=== PATIENT | male | born 1945 | race Caucasian/White ===

== ENCOUNTER 2018-08-25 19:13 | Inpatient (IN) | payer MEDICARE ==
[~2018-08-25] VITALS: Ht 180.3 cm; Wt 118.8 kg
[2018-08-25] MEDS ORDERED: NS(*) 0.9% 500 ML BAG 500 ML IV ONE (19:17)
[2018-08-25] MEDS ORDERED: methylPREDNIS SUCC 125 MG/2ML IVP ONE (19:20)
[2018-08-25] MEDS ORDERED: ALBUTEROL/IPRATROPIUM 3 ML NEB ONE (19:20)
--- NOTE | 2018-08-25 19:30 | ER Report ---
History and Physical Time Seen By MD: 19:18 Hx. of Stated Complaint: PATIENT HAVING SHORTNESS OF BREATH. HPI/ROS CHIEF COMPLAINT: Shortness of breath HISTORY OF PRESENT ILLNESS: 72-year-old male patient presents to emergency room with complaints shortness of breath. Patient states that he had just flown in to [place] from [place] this afternoon. He has drove up. They're here visiting as she is here for a conference. He states that when he landed in [place] he had a hard time walking. He states that that has worsened throughout the day. He states that he is feeling he is not able to catch his breath. His did call EMS which responded. They did find him 53% on room air. He was started on Cipro And was able to get up to 85-80% with 15 L of oxygen bled in. Patient denies having any fevers, chills, nausea, vomiting or diarrhea. Patient has not taken any medication for this. Patient has taken his normal daily medications. REVIEW OF SYSTEMS: Respiratory: As noted above Cardiovascular: No chest pain, no palpitations. Gastrointestinal: No vomiting, no abdominal pain. Musculoskeletal: No back pain. Allergies: Coded Allergies: lisinopril (Verified Adverse Reaction, Intermediate, BACK PAIN, 08/25/18) Home Meds Reported Medications Aspirin (ASPIRIN EC) 81 Mg Tablet.dr, 81 MG PO QDAY, TAB 08/25/18 [place]-3 Fatty Acids/Fish Oil (FISH OIL 1,000 MG CAPSULE) 1 Each Capsule, 1 EACH PO BID, CAPSULE 08/25/18 Fluticasone Prop 50 Mcg Ns (FLONASE 50 MCG NS) 16 Gm [place].susp, 2 SPRAYS NS BID, BOT 08/25/18 Insulin NPH Hum/Reg Insulin Hm (Relion Novolin 70-30 Flexpen) 100 Unit/Ml (70- 30) Insuln.pen, 85 UNITS SUBQ BIDAC 08/25/18 Ezetimibe (ZETIA) 10 Mg Tablet, 10 MG PO QDAY, TAB 08/25/18 Tamsulosin Hcl (TAMSULOSIN HCL) 0.4 Mg Cap.er.24h, 0.4 MG PO QDAY, CAP 08/25/18 Atorvastatin Calcium (LIPITOR) 40 Mg Tablet, 2 TAB PO QDAY, TAB 08/25/18 [Bd Insulin] No Conflict Check, SQ DIRECTED 08/25/18 Labetalol Hcl (LABETALOL HCL) 300 Mg Tablet, 300 MG PO BID 08/25/18 Tadalafil (Tadalafil) 20 Mg Tablet, 1 TAB PO QDAY 08/25/18 Hydralazine Hcl (HYDRALAZINE HCL) 100 Mg Tablet, 100 MG PO BID, TAB 08/25/18 Omeprazole (OMEPRAZOLE) 20 Mg Tablet.dr, 20 MG PO QDAY, TAB 08/25/18 Amlodipine Besylate (AMLODIPINE BESYLATE) 10 Mg Tablet, 1 TAB PO QDAY, TAB 08/25/18 Clopidogrel Bisulfate (CLOPIDOGREL) 75 Mg Tablet, 1 TAB PO QDAY, TAB 08/25/18 Past Medical/Surgical History Patient has a past medical history of peripheral neuropathy, AAA, carotid stenosis, congestive heart failure, hypertension, hyperlipidemia, sleep apnea, COPD, reflux, chronic kidney disease, osteopenia, arthritis, type 2 diabetes, squamous cell carcinoma. Patient has surgical history of coronary stent, quintuple bypass, squamous cell carcinoma removal. Reviewed Nurses Notes: Yes Constitutional Vital Sign - Last 24 Hours 08/25/18 08/25/18 08/25/18 08/25/18 19:13 19:14 19:27 19:28 Pulse 81 84 73 Resp 39 30 B/P (MAP) 182/78 Pulse Ox 87 90 96 O2 Delivery CPAP O2 Flow Rate 5.0 08/25/18 08/25/18 08/25/18 08/25/18 19:38 19:42 19:43 20:00 Pulse 76 75 Resp 20 27 B/P (MAP) 165/60 (95) Pulse Ox 93 97 O2 Delivery Nasal Cannula O2 Flow Rate 5.0 08/25/18 08/25/18 08/25/18 08/25/18 20:13 20:28 20:33 20:48 Pulse 72 73 71 74 Resp 19 12 28 17 Pulse Ox 92 92 91 87 Physical Exam General Appearance: The patient is alert, has no immediate need for airway protection and no current signs of toxicity. Respiratory: Chest is non tender, lungs are coarse with wheezing to auscultation. Cardiac: regular rate and rhythm Gastrointestinal: Abdomen is soft and non tender, no masses, bowel sounds normal. Musculoskeletal: Neck: Neck is supple and non tender. Extremities have full range of motion and are non tender. Skin: No rashes or lesions. DIFFERENTIAL DIAGNOSIS: After history and physical exam differential diagnosis was considered for shortness of breath including but not limited to pulmonary infectious process, COPD, asthma, pulmonary embolus and congestive heart failure. Medical Decision Making Data Points Result Diagram: 08/25/18190608/25/181906 Laboratory Hematology Test 08/25/18 19:07 08/25/18 20:47 Red Blood Count 3.33 M/uL (4.00-5.60) Mean Corpuscular Volume 89.8 fL (80.0-96.0) Mean Corpuscular Hemoglobin 29.9 pg (26.0-33.0) Mean Corpuscular Hemoglobin Concent 33.3 g/dL (32.0-36.0) Red Cell Distribution Width 14.0 % (11.5-14.5) Mean Platelet Volume 7.2 fL (7.2-11.1) Neutrophils (%) (Auto) 64.4 % (39.4-72.5) Lymphocytes (%) (Auto) 22.2 % (17.6-49.6) Monocytes (%) (Auto) 6.5 % (4.1-12.4) Eosinophils (%) (Auto) 6.1 % (0.4-6.7) Basophils (%) (Auto) 0.8 % (0.3-1.4) Nucleated RBC Relative Count (auto) 0.0 /100WBC Neutrophils # (Auto) 8.1 K/uL (2.0-7.4) Lymphocytes # (Auto) 2.8 K/uL (1.3-3.6) Monocytes # (Auto) 0.8 K/uL (0.3-1.0) Eosinophils # (Auto) 0.8 K/uL (0.0-0.5) Basophils # (Auto) 0.1 K/uL (0.0-0.1) Nucleated RBC Absolute Count (auto) 0.00 K/uL Prothrombin Time 13.2 seconds (12.0-14.4) Prothromb Time International Ratio 1.00 Activated Partial Thromboplast Time 29 seconds (23-35) D-Dimer Quantitative (PE/DVT) 1.57 ug/ml (0-0.50) Sodium Level 140 mmol/L (137-145) Potassium Level 4.0 mmol/L (3.5-5.0) Chloride Level 106 mmol/L (98-107) Carbon Dioxide Level 22 mmol/L (22-30) Blood Urea Nitrogen 31 mg/dl (9-21) Creatinine 3.00 mg/dl (0.66-1.25) Glomerular Filtration Rate Calc 20.6 Random Glucose 130 mg/dl (75-110) Calcium Level 8.8 mg/dl (8.4-10.2) Total Bilirubin 0.5 mg/dl (0.2-1.3) Aspartate Amino Transf (AST/SGOT) 21 U/L (0-35) Alanine Aminotransferase (ALT/SGPT) 34 U/L (0-56) Alkaline Phosphatase 136 U/L (0-126) Troponin I 0.014 ng/ml B-Type Natriuretic Peptide 391 pg/ml (0-100) Total Protein 7.9 g/dl (6.3-8.2) Albumin 4.5 g/dl (3.5-5.0) Influenza Virus Type A (PCR) Negative (NEGATIVE) Influenza Virus Type B (PCR) Negative (NEGATIVE) Chemistry Test 08/25/18 19:07 08/25/18 20:47 White Blood Count 12.6 k/uL (4.5-11.0) Red Blood Count 3.33 M/uL (4.00-5.60) Hemoglobin 10.0 g/dL (14.0-18.0) Hematocrit 29.9 % (42.0-52.0) Mean Corpuscular Volume 89.8 fL (80.0-96.0) Mean Corpuscular Hemoglobin 29.9 pg (26.0-33.0) Mean Corpuscular Hemoglobin Concent 33.3 g/dL (32.0-36.0) Red Cell Distribution Width 14.0 % (11.5-14.5) Platelet Count 368 K/uL (150-450) Mean Platelet Volume 7.2 fL (7.2-11.1) Neutrophils (%) (Auto) 64.4 % (39.4-72.5) Lymphocytes (%) (Auto) 22.2 % (17.6-49.6) Monocytes (%) (Auto) 6.5 % (4.1-12.4) Eosinophils (%) (Auto) 6.1 % (0.4-6.7) Basophils (%) (Auto) 0.8 % (0.3-1.4) Nucleated RBC Relative Count (auto) 0.0 /100WBC Neutrophils # (Auto) 8.1 K/uL (2.0-7.4) Lymphocytes # (Auto) 2.8 K/uL (1.3-3.6) Monocytes # (Auto) 0.8 K/uL (0.3-1.0) Eosinophils # (Auto) 0.8 K/uL (0.0-0.5) Basophils # (Auto) 0.1 K/uL (0.0-0.1) Nucleated RBC Absolute Count (auto) 0.00 K/uL Prothrombin Time 13.2 seconds (12.0-14.4) Prothromb Time International Ratio 1.00 Activated Partial Thromboplast Time 29 seconds (23-35) D-Dimer Quantitative (PE/DVT) 1.57 ug/ml (0-0.50) Glomerular Filtration Rate Calc 20.6 Calcium Level 8.8 mg/dl (8.4-10.2) Total Bilirubin 0.5 mg/dl (0.2-1.3) Aspartate Amino Transf (AST/SGOT) 21 U/L (0-35) Alanine Aminotransferase (ALT/SGPT) 34 U/L (0-56) Alkaline Phosphatase 136 U/L (0-126) Troponin I 0.014 ng/ml B-Type Natriuretic Peptide 391 pg/ml (0-100) Total Protein 7.9 g/dl (6.3-8.2) Albumin 4.5 g/dl (3.5-5.0) Influenza Virus Type A (PCR) Negative (NEGATIVE) Influenza Virus Type B (PCR) Negative (NEGATIVE) Coagulation Test 08/25/18 19:07 Prothrombin Time 13.2 seconds Prothromb Time International Ratio 1.00 Activated Partial Thromboplast Time 29 seconds D-Dimer Quantitative (PE/DVT) 1.57 ug/ml EKG/Imaging EKG Interpretation 12 lead EKG: Rhythm: Sinus rhythm with first-degree AV block, premature supraventric ular complexes, ventricular rate 72 bpm. [place]: normal QRS: normal ST segments: normal Imaging EXAMINATION: Chest 2 Views HISTORY: Shortness of breath COMPARISON: None. FINDINGS: Lungs are hyperinflated. Mild chronic appearing interstitial changes. There is some slight increased opacity in the right lower lung which may represent developing infiltrate. Costophrenic angles are sharp. No pneumothorax. Sternotomy with postop cardiac changes. Normal cardiomediastinal silhouette. Osteopenia. There is mild wedging of several vertebral bodies near the thoracolumbar junction. IMPRESSION: 1. Hyperinflation with mild chronic interstitial changes. 2. Questionable area of developing infiltrate in the lower right lung. Report Dictated By: Monroe Martínez MD at 08/25/2018 8:27 PM Report E-Signed By: Monroe Martínez MD at 08/25/2018 8:28 PM ED Course/Re-evaluation ED Course Patient was admitted to an exam room, history and physical were obtained. Differential diagnoses were considered. On examination lungs are coarse with wheezing, heart is regular, abdomen is soft and nontender. Patient was initially on Cipro. A CBC, CMP, d-dimer, chest x-ray, troponin, EKG were done. Patient was started on a DuoNeb as well as receiving 125 mg of Solu-Medrol. Patient had a significant improvement with the DuoNeb. He is able to breathe much easier. We were able to get him off the C Pap and on to 5 L of oxygen. Patient had an elevated white count, 12,000, CMP was markedly for elevated creatinine of 3. That is likely related to his chronic kidney disease. Chest x-ray was done which showed a developing infiltrate in the right lower lobe. Patient did have an elevated d-dimer, both his creatinine being as high as was were unable do a CT pulmonary angiogram. I discussed the case with Dr. Zuniag, hospitalist, who agre ed to accept the patient for admission. He did request that an influenza screen be done. That was obtained. It was negative. I discussed plan for admission with the patient and his and they verbalized understanding and agreement with plan. Decision to Disposition Date: Aug 25, 2018 Decision to Disposition Time: 20:45 Depart Departure Latest Vital Signs Vital Signs Date Time Temp Pulse Resp B/P (MAP) Pulse Ox O2 Delivery O2 Flow Rate FiO2 08/25/18 20:48 74 17 87 08/25/18 20:00 165/60 (95) 08/25/18 19:42 Nasal Cannula 5.0 Impression: Primary Impression: Pneumonia Additional Impression: Elevated d-dimer Condition: Improved Disposition: Admitted from ER Problem Qualifiers Primary Impression: Pneumonia Pneumonia type: due to unspecified organism Laterality: right Lung location: lower lobe of lung Qualified Codes: J18.1 - Lobar pneumonia, unspecified organism DEBORAH ELLINGTON Aug 25, 2018 19:31
[2018-08-25 19:34] LABS: PLATELET COUNT, AUTOMATED 368 K/uL (150-450)
[2018-08-25] MEDS ORDERED: IOPAMIDOL 76% 100 ML INFUS BTL 100 ML ONE (19:35)
[2018-08-25] MEDS ORDERED: NS(*) 0.9% 50 ML BAG 50 ML ONE (19:35)
[2018-08-25] MEDS: ALBUTEROL/IPRATROPIUM 3 ML NEB NEB SCH ×2 (19:40→22:05)
[2018-08-25] MEDS ORDERED: BD INSULIN SQ (20:18)
[2018-08-25] MEDS ORDERED: [UNRECOGNIZED DRUG - CODE] PO (20:18)
[2018-08-25] MEDS ORDERED: FLUT16SP19 NS (20:18)
[2018-08-25] MEDS ORDERED: OMEG-11 PO (20:18)
[2018-08-25] MEDS ORDERED: ATOR40TA24 PO (20:18)
[2018-08-25] MEDS ORDERED: AMLO-127 PO (20:18)
[2018-08-25] MEDS ORDERED: EZET10TA41 PO (20:18)
[2018-08-25] MEDS ORDERED: TAMS0.4C70 PO (20:18)
[2018-08-25] MEDS ORDERED: ASPI81TA86 PO (20:18)
[2018-08-25] MEDS ORDERED: INSU100I43 SUBQ (20:18)
[2018-08-25] MEDS ORDERED: CLOP75TA PO (20:18)
[2018-08-25] MEDS ORDERED: OMEP-137 PO (20:18)
[2018-08-25] MEDS ORDERED: HYDR100T5 PO (20:18)
[2018-08-25] MEDS ORDERED: TADA20TA PO (20:18)
--- NOTE | 2018-08-25 20:20 | EKG ---
[place] [facility] [place] NAME: SANTOS PEREZ : [id number] MR: [id number] V: [id number] EXAM DATE: ORDERING PHYSICIAN: DEBORAH ELLINGTON TECHNOLOGIST: IVY Test Reason : CARDIAC Blood Pressure : / mmHG Vent. Rate : 072 BPM Atrial Rate : 072 BPM P-R Int : 246 ms QRS Dur : 090 ms QT Int : 416 ms P-R-T Axes : 088 012 079 degrees QTc Int : 455 ms Sinus rhythm with 1st degree AV block with premature supraventricular complexes and fusion complexes Otherwise normal ECG No previous ECGs available Confirmed by CONSUELO BROUSSARD ([id number]) on 08/26/2018 6:29:17 AM Referred By: Confirmed By:CONSUELO BROUSSARD
--- NOTE | 2018-08-25 20:32 | RADIOLOGY IMAGING REPORT ---
FACILITY: [facility] PATIENT NAME: Amilcar Valles : 1945 MR: [id number] V: [id number] EXAM DATE: ORDERING PHYSICIAN: DEBORAH ELLINGTON TECHNOLOGIST: Location: [facility] - [place] Patient: Amilcar Valles : 1945 Visit/Account:[id number] Date of Sevice: 08/25/2018 EXAMINATION: Chest 2 Views HISTORY: Shortness of breath COMPARISON: None. FINDINGS: Lungs are hyperinflated. Mild chronic appearing interstitial changes. There is some slight increased opacity in the right lower lung which may represent developing infiltrate. Costophrenic angles are sharp. No pneumothorax. Sternotomy with postop cardiac changes. Normal cardiomediastinal silhouette. Osteopenia. There is mild wedging of several vertebral bodies near the thoracolumbar junction. IMPRESSION: 1. Hyperinflation with mild chronic interstitial changes. 2. Questionable area of developing infiltrate in the lower right lung. Report Dictated By: Monroe Martínez MD at 08/25/2018 8:27 PM Report E-Signed By: Monroe Martínez MD at 08/25/2018 8:28 PM [id number]
[2018-08-25 21:15] VITALS: BP 134/53
[2018-08-25] MEDS ORDERED: ALBUTEROL 2.5 MG/3 ML NEB NEB PRN (22:05)
[2018-08-25] MEDS ORDERED: DOXYCYCLINE HYCL 100 MG VIAL 100 MG in NS(*) 0.9% 250 ML BAG 250 ML IV SCH (22:05)
[2018-08-25] MEDS ORDERED: cefTRIAXone 2 GM VIAL IVP SCH (22:05)
[2018-08-25] MEDS ORDERED: INFLUENZA VIRUS VAC 0.5ML SYR IM ONLY ONE (22:05)
--- NOTE | 2018-08-25 22:18 | History & Physical ---
History of Present Illness Chief Complaint Shortness of breath History of Present Illness This patient presented to the emergency room complaining of shortness of breath. He resides in [place], [place] and felt a little short of breath before leaving there this morning. He felt much worse upon arriving in [place]. History Problems: (1) Diabetic neuropathy (2) DM2 (diabetes mellitus, type 2) (3) Hx of CABG (4) History of coronary artery stent placement (5) Essential hypertension (6) CAD (coronary artery disease) (7) COPD (chronic obstructive pulmonary disease) (8) AAA (abdominal aortic aneurysm) Home Meds Reported Medications Aspirin (ASPIRIN EC) 81 Mg Tablet.dr, 81 MG PO QDAY, TAB 08/25/18 [place]-3 Fatty Acids/Fish Oil (FISH OIL 1,000 MG CAPSULE) 1 Each Capsule, 1 EACH PO BID, CAPSULE 08/25/18 Fluticasone Prop 50 Mcg Ns (FLONASE 50 MCG NS) 16 Gm [place].susp, 2 SPRAYS NS BID, BOT 08/25/18 Insulin NPH Hum/Reg Insulin Hm (Relion Novolin 70-30 Flexpen) 100 Unit/Ml (70- 30) Insuln.pen, 85 UNITS SUBQ BIDAC 08/25/18 Ezetimibe (ZETIA) 10 Mg Tablet, 10 MG PO QDAY, TAB 08/25/18 Tamsulosin Hcl (TAMSULOSIN HCL) 0.4 Mg Cap.er.24h, 0.4 MG PO QDAY, CAP 08/25/18 Atorvastatin Calcium (LIPITOR) 40 Mg Tablet, 2 TAB PO QDAY, TAB 08/25/18 [Bd Insulin] No Conflict Check, SQ DIRECTED 08/25/18 Labetalol Hcl (LABETALOL HCL) 300 Mg Tablet, 300 MG PO BID 08/25/18 Tadalafil (Tadalafil) 20 Mg Tablet, 1 TAB PO QDAY 08/25/18 Hydralazine Hcl (HYDRALAZINE HCL) 100 Mg Tablet, 100 MG PO BID, TAB 08/25/18 Omeprazole (OMEPRAZOLE) 20 Mg Tablet.dr, 20 MG PO QDAY, TAB 08/25/18 Amlodipine Besylate (AMLODIPINE BESYLATE) 10 Mg Tablet, 1 TAB PO QDAY, TAB 08/25/18 Clopidogrel Bisulfate (CLOPIDOGREL) 75 Mg Tablet, 1 TAB PO QDAY, TAB 08/25/18 Allergies: Coded Allergies: lisinopril (Verified Adverse Reaction, Intermediate, BACK PAIN, 08/25/18) Hx Smoking: Yes Smoking Status: Former Smoker When Quit Tobacco?: 2004 Hx Alcohol Use: No Hx Substance Use Disorder: No Review of Systems All Systems Reviewed/Normal: Yes, Except as Noted Respiratory: Shortness of Breath, Cough Exam Vital Signs Vital Signs Date Time Temp Pulse Resp B/P (MAP) Pulse Ox O2 Delivery O2 Flow Rate FiO2 08/25/18 21:15 97.5 72 18 134/53 (80) 91 Nasal Cannula 6.0 Neuro: No Gross deficits Eyes: PERRLA Cardiovascular: Regular Rate and Rhythm Respiratory: Other (Crackles on right.) GI: Abd Soft and Non-Tender Extremities: No Edema Integumentary: No Cyanosis Medical Decision Making Data Points Result Diagram: 08/25/18190608/25/181906 Assessment and Plan Problems: (1) Bacterial pneumonia Assessment & Plan: His chest x-ray did show a developing infiltrate in the right lung. He has been started on empiric treatment with ceftriaxone and azithromycin. Blood cultures are pending. (2) COPD exacerbation Assessment & Plan: He has been started on nebulizers and steroids. (3) DM2 (diabetes mellitus, type 2) Assessment & Plan: He is on chronic treatment with 70/30 insulin. We have also placed him on sliding scale level #2. (4) CAD (coronary artery disease) Assessment & Plan: He is on chronic treatment with aspirin and Plavix. (5) Essential hypertension Assessment & Plan: He is on chronic treatment with amlodipine, hydralazine, and labetalol. (6) Chronic kidney disease (CKD) stage G4/A1, severely decreased glomerular filtration rate (GFR) between 15-29 mL/min/1.73 square meter and albuminuria creatinine ratio less than 30 mg/g Assessment & Plan: He has one functioning kidney. He does not recall his baseline creatinine. (7) Sleep apnea Assessment & Plan: He does wear CPAP at home. Venous Thromboembolism Antithrombotics Is Pt On Any Antithrombotics?: No Exam Sepsis Risk: No Definite Risk CONSUELO BROUSSARD DO Aug 25, 2018 22:18
[2018-08-25] MEDS: NS(*) 0.9% 1000 ML BAG 1,000 ML IV PRN (22:56)
[2018-08-25] MEDS ORDERED: NS(*) 0.9% 250 ML BAG 250 ML ONE (22:57)
[2018-08-25] MEDS: INSULIN HUM LISPRO 100 UN/ML 3 ML VIAL SUBQ PRN (23:13)
[2018-08-25 23:26] VITALS: BP 142/61
[2018-08-26 04:14] VITALS: BP 141/65
[2018-08-26] MEDS: ALBUTEROL/IPRATROPIUM 3 ML NEB NEB SCH ×4 (05:24→17:38)
[2018-08-26 05:53] LABS: PLATELET COUNT, AUTOMATED 278 K/uL (150-450)
[2018-08-26 07:23] VITALS: BP 132/59
[2018-08-26] MEDS: INSULIN HUM LISPRO 100 UN/ML 3 ML VIAL SUBQ PRN ×3 (07:27→20:36)
[2018-08-26] MEDS: NS(*) 0.9% 1000 ML BAG 1,000 ML IV PRN (07:27)
[2018-08-26] MEDS ORDERED: PATIENT'S OWN MED SUBQ SCH (07:30)
[2018-08-26] MEDS: ASPIRIN 81 MG ENTERIC COATED PO SCH (08:25)
[2018-08-26] MEDS: OMEGA-3 500 MG CAP PO SCH ×2 (08:25→20:37)
[2018-08-26] MEDS: ADCIRCA 20 MG PO SCH (08:26)
[2018-08-26] MEDS: LABETALOL HCL 100 MG TAB PO SCH ×2 (08:26→20:37)
[2018-08-26] MEDS: TAMSULOSIN HCL 0.4 MG CAP PO SCH (08:26)
[2018-08-26] MEDS: predniSONE 20 MG TAB PO SCH (08:26)
[2018-08-26] MEDS: ATORVASTATIN 40 MG TAB PO SCH (08:26)
[2018-08-26] MEDS: amLODIPine BESYL(*) 5 MG TAB PO SCH (08:26)
[2018-08-26] MEDS: EZETIMIBE 10 MG TAB PO SCH (08:26)
[2018-08-26] MEDS: hydrALAZINE HCL 25 MG TAB PO SCH ×2 (08:26→20:37)
[2018-08-26] MEDS: FLUTICASONE PROP 0.05% 16 GM SCH ×2 (08:27→20:37)
[2018-08-26] MEDS: CLOPIDOGREL BISULFATE 75MG TAB PO SCH (08:27)
[2018-08-26] MEDS: PANTOPRAZOLE SOD 40 MG TABEC PO SCH (08:27)
[2018-08-26 08:45] VITALS: BMI 36.5
[2018-08-26 09:03] VITALS: BMI 36.5
--- NOTE | 2018-08-26 10:09 | RADIOLOGY IMAGING REPORT ---
[place] [facility] [place] Amilcar Valles : 1945 MR: [id number] V: [id number] EXAM DATE: ORDERING PHYSICIAN: FLAQUITA OQUENDO TECHNOLOGIST: [place] [facility] [place] Amilcar Vall[place] : 1945 Visit/Account:[id number] Date of Sevice: 08/26/2018 Exam type: CHEST SINGLE AP History: hypoxia Comparison: 08/25/2018. Findings: Lungs are well-expanded. Mildly prominent pulmonary vascular and interstitial markings are once agai n noted essentially unchanged. I cannot exclude mild fluid overload or pulmonary congestion. No foc al infiltrate, pleural effusion or pneumothorax. Heart is enlarged. Postoperative changes noted from median sternotomy. The osseous structures are unremarkable. IMPRESSION: 1. Mild pulmonary vascular and interstitial prominence not significantly changed from prior examinat ion. I cannot exclude mild fluid overload or pulmonary vascular congestion. No focal infiltrate. Report Dictated By: Davidson Solomon MD at 08/26/2018 10:02 AM Report E-Signed By: Davidson Solomon MD at 08/26/2018 10:04 AM WSN:[email or web address] [id number]
[2018-08-26] MEDS: DOXYCYCLINE HYCL 100 MG VIAL 100 MG in NS(*) 0.9% 250 ML BAG 250 ML IV SCH ×2 (10:19→22:50)
[2018-08-26 10:46] VITALS: BP 131/49
[2018-08-26 10:48] VITALS: Ht 180.3 cm; Wt 118.8 kg
--- NOTE | 2018-08-26 10:54 | Medical Nutrition Therapy ---
Nutrition Anthropometrics Height (Inches): 71.00 Height (Calculated Centimeters: 180.422637 Weight (Pounds): 262 Weight (Calculated Kilograms): 118.841 [place] Nutrition Score: Adequate [place] Nutrition Risk Score: 20 Dietary Referral Nutrition Risk Factors: Nutrition Risk Comment: Physical Findings Physical Appearance: Obese BMI 30-39 Skin Appearance Skin Appearance: Edema Edema Location Modifier: Edema Location: Type of Edema: Degree of Edema: Gastrointestinal Symptoms GI Symtoms: Tube Present: Bowel Sounds: Recent Bowel Pattern: Stool Characteristics: Nutritional Diagnosis Nutritional Risk Acuity 2: Chronic Renal Failure Past Medical History: Hx of diabetic neuropathy, DMT2, CAD, COPD, AAA, HTN, CABG Nutritional Acuity: 2-Moderate Nutrition Diagnosis: Inappropriate Carb Intake Nutrition Etiology: Physiological Causes Nutrition Problem/Etiology/Sym: Inappropriate carb intake related to physiological causes as evidenced by elevated WBG (170) and RBG (130-231) labs, hx of DMT2, and CKD stage G4/A1. Energy Requirement: 2561 (MSJ, 1.1 TEF, 1.2 AF) Adjusted Energy Requirement Re: 2060 (-500kcal) Protein Requirement: 71 (0.6g AA per k of BW) Fluid Requirement: 9 (0.8mLkcal) Diet Type: Diabetic Nutrition Intervention: Cont diet as ordered, Encourage intake, Check glucose Nutrition Monitoring & Eval Nutrition Goals: Eat 50-100% Meal RD Patient Assessment Time: [address] Assessment Type: RD Assessment Patient Nutrition Acuity: 2-Moderate Follow Up Date: Aug 29, 2018 Nutritional Comment: 08/26: Pt was admitted for SOB. Pt was dx with bacterial pneumonia, CAD, COPD, DMT2, HTN, CKD stage G4/A1. Pt has a hx of diabetic neuropathy, DMT2, CAD, AAA, COPD, HTN, CABG. Pt has elevated WBG (170), RBG (130-231), creatinine and BUN levels. -KIRA PARKER Aug 26, 2018 09:02
--- NOTE | 2018-08-26 11:21 | Hospitalist Progress Note ---
Subjective Progress Notes Subjective No cp. Breathing more easily with O2. Denies cough/coryza/LE edema. Physical Exam Vital Signs Date Time Temp Pulse Resp B/P (MAP) Pulse Ox O2 Delivery O2 Flow Rate FiO2 08/26/18 10:46 97.8 62 16 131/49 (76) 99 CPAP 10.0 Intake and Output 08/26/18 07:00 Intake Total 900 ml Output Total 450 ml Balance 450 ml Intake Oral 400 ml IV Total 500 ml Output Urine Total 450 ml # Voids 2 General Appearance: Alert, Awake, No Acute Distress Cardiovascular: Regular Rate and Rhythm Respiratory: Clear to Auscultation Extremities: No Edema Result Diagram: 08/26/1853708/26/18537 Assessment and Plan Problems: (1) Bacterial pneumonia Assessment & Plan: He presented with a couple days of SOB that started in [place] and worsened the day of [place]. His chest x-ray did show a developing infiltrate in the right lung, but repeat CXR showed possibly some improvement. He did have an elevated WBC at admission, but has been afebrile. He has been started on empiric treatment with ceftriaxone and azithromycin. Blood cultures are pending. Because of the elevated D-Dimer and an equivocal diagnosis of pneumonia, will check a V/Q scan. Also, repeating BNP tomorrow. (2) COPD exacerbation Assessment & Plan: He was wheezy in the ER, which has cleared. He has been started on nebulizers and steroids. See above. (3) Anemia Status: Chronic Assessment & Plan: Likely chronic and related to CKD. He hasn't had a BM since admission. Will follow Hgb. (4) DM2 (diabetes mellitus, type 2) Assessment & Plan: He is on chronic treatment with 70/30 insulin. We have also placed him on sliding scale level #2. (5) CAD (coronary artery disease) Assessment & Plan: He is on chronic treatment with aspirin and Plavix. (6) Essential hypertension Assessment & Plan: He is on chronic treatment with amlodipine, hydralazine, and labetalol. (7) Chronic kidney disease (CKD) stage G4/A1, severely decreased glomerular filtration rate (GFR) between 15-29 mL/min/1.73 square meter and albuminuria creatinine ratio less than 30 mg/g Assessment & Plan: He has one functioning kidney. He does not recall his baseline creatinine. (8) Sleep apnea Assessment & Plan: He does wear CPAP at home. Exam Sepsis Risk: No Definite Risk FLAQUITA OQUENDO MD Aug 26, 2018 11:21
--- NOTE | 2018-08-26 12:13 | Antimicrobial Stewardship ---
Antimicrobial Stewardship Empiricly appropriate: Yes (CAP - Ceftriaxone + Doxycycline) Significant PMH: Yes (Quintuple bypass, CAD, AAA, CKD, sleep apnea, T2DM ) Support empiric regimen: Yes Approriate Cultures done: Yes (Blood Cx x 2 pending) Renal/Hepatic dosing: Yes (Scr 2.8, IBW 75.3, Adj 93kg, CrCl ~30ml/min) Reviewed for Drug Interaction: Yes Monitored for Toxicities: Yes Comment Consider switch to oral antibiotics tomorrow if pt remains afebrile Determine cumulative duration: Today is day Determine standard duration: 5-7 days Comment 72 yo M with a PMH of quintuple bypass, CAD, AAA, CKD (one fxn kidney), sleep apnea, and [id number] is from [place], [place] who arrived in town not feeling well with complaints of SOB, O2 sats of 53% on RA. Temp afebrile WBC 12.6 D-dimer 1.57 Scr 3--> 2.8 Influenza a/B (-) Blood Cx x 2 NGTD Chest xray RLL questionable infiltrate on 08/25/18, repeat today- improved Plan continue antibiotics ceftriaxone/doxycycline for 5-7 days. Consider VQ scan with elevated d-dimer and questionable pneumonia, rule out a PE. Continue treatment. Maritza Mishra, PharmD, BCOP MARITZA MISHRA Aug 26, 2018 12:13
[2018-08-26 14:35] VITALS: BP 105/54
[2018-08-26] MEDS: INSULIN HUM ISO(NPH) 100 UN/ML 3 ML VIAL SUBQ SCH (17:26)
--- NOTE | 2018-08-26 18:19 | RADIOLOGY IMAGING REPORT ---
FACILITY: [facility] PATIENT NAME: Amilcar Valles : 1945 MR: [id number] V: [id number] EXAM DATE: ORDERING PHYSICIAN: FLAQUITA OQUENDO TECHNOLOGIST: Location: [facility] Patient: Amilcar Valles : 1945 Visit/Account:[id number] Date of Sevice: 08/26/2018 EXAMINATION: Nuclear Medicine Ventilation Perfusion Lung Scan 08/26/2018 11:03 AM HISTORY: hypoxia TECHNIQUE: 30.4 mCi DTPA was administered by inhalation. Static images were obtained. 2.1 mCi Tc MAA was injected intravenously. Gamma camera images were obtained of the chest in various orientations. COMPARISON: Chest x-ray today FINDINGS: Lung ventilation radiotracer distribution: Mildly heterogeneous tracer distribution mostly in the upp er lung ty at least some which may be due to attenuation secondary to body habitus. Lung perfusion radiotracer distribution: Subtly heterogeneous tracer distribution which may also be secondary to attenuation. No discrete focal segmental or subsegmental perfusion abnormality of concer n. Correlation to chest x-ray: No infiltrate, effusion or evidence of CHF. IMPRESSION: Low probability for acute PE. Report Dictated By: Sai Stark MD at 08/26/2018 6:13 PM Report E-Signed By: Sai Stark MD at 08/26/2018 6:15 PM [id number]
[2018-08-26 18:42] VITALS: BP 146/62
[2018-08-26] MEDS: cefTRIAXone 2 GM VIAL IVP SCH (22:50)
[2018-08-26 22:53] VITALS: BP 110/45
[2018-08-27] VITALS (8 sets, daily range): BP systolic 132–154; BP diastolic 59–76
[2018-08-27] MEDS: ALBUTEROL/IPRATROPIUM 3 ML NEB NEB SCH ×4 (05:09→17:00)
[2018-08-27 05:44] LABS: PLATELET COUNT, AUTOMATED 289 K/uL (150-450)
[2018-08-27] MEDS: INSULIN HUM LISPRO 100 UN/ML 3 ML VIAL SUBQ PRN ×4 (08:04→21:03)
[2018-08-27] MEDS: INSULIN HUM ISO(NPH) 100 UN/ML 3 ML VIAL SUBQ SCH ×2 (08:05→16:51)
[2018-08-27] MEDS: FLUTICASONE PROP 0.05% 16 GM SCH ×2 (08:38→21:02)
[2018-08-27] MEDS: CLOPIDOGREL BISULFATE 75MG TAB PO SCH (08:40)
[2018-08-27] MEDS: ATORVASTATIN 40 MG TAB PO SCH (08:40)
[2018-08-27] MEDS: PANTOPRAZOLE SOD 40 MG TABEC PO SCH (08:41)
[2018-08-27] MEDS: TAMSULOSIN HCL 0.4 MG CAP PO SCH (08:41)
[2018-08-27] MEDS: LABETALOL HCL 100 MG TAB PO SCH ×2 (08:41→21:02)
[2018-08-27] MEDS: ASPIRIN 81 MG ENTERIC COATED PO SCH (08:41)
[2018-08-27] MEDS: predniSONE 20 MG TAB PO SCH (08:41)
[2018-08-27] MEDS: EZETIMIBE 10 MG TAB PO SCH (08:41)
[2018-08-27] MEDS: amLODIPine BESYL(*) 5 MG TAB PO SCH (08:41)
[2018-08-27] MEDS: OMEGA-3 500 MG CAP PO SCH ×2 (08:42→21:01)
[2018-08-27] MEDS: ADCIRCA 20 MG PO SCH (08:42)
[2018-08-27] MEDS: hydrALAZINE HCL 25 MG TAB PO SCH ×2 (08:42→21:02)
[2018-08-27] MEDS: DOXYCYCLINE HYCL 100 MG VIAL 100 MG in NS(*) 0.9% 250 ML BAG 250 ML IV SCH ×2 (11:20→22:06)
--- NOTE | 2018-08-27 12:27 | Hospitalist Progress Note ---
Subjective Progress Notes Subjective He reports some minor improvements. Physical Exam Vital Signs Date Time Temp Pulse Resp B/P (MAP) Pulse Ox O2 Delivery O2 Flow Rate FiO2 08/27/18 09:09 92 Nasal Cannula 1.5 08/27/18 09:09 65 18 08/27/18 07:58 97.9 140/76 (97) Intake and Output 08/27/18 07:00 Intake Total 3110 ml Output Total 1180 ml Balance 1930 ml Intake Oral 1600 ml IV Total 1510 ml Output Urine Total 1180 ml # Voids 5 General Appearance: Alert, Awake Cardiovascular: Regular Rate and Rhythm Respiratory: Other (Fairly clear no rales or wheezes noted/few scattered rhonchi) GI: Soft and Non-Tender Extremities: Warm, Perfused Psych: Alert & Oriented X3 Result Diagram: 08/27/1852608/27/18526 Assessment and Plan Problems: (1) Bacterial pneumonia Status: Acute Assessment & Plan: He presented with a couple days of SOB that started in [place] and worsened the day of admission upon [place]. His chest x-rays did show a question of a developing infiltrate in the right lung, but repeat CXR showed possibly some improvement. Both, however, do show interstitial prominence. He did have an elevated WBC at admission, which has normalized. He has been afebrile. He has been started on empiric treatment with ceftriaxone and azithromycin. Blood cultures are negative thus far. Because of the elevated D-Dimer and an equivocal diagnosis of pneumonia, a V/Q scan was performed - low probability. (2) COPD exacerbation Assessment & Plan: He was wheezy in the ER, which has cleared. He has been started on nebulizers and steroids. See above for additional treatment. (3) Anemia Status: Chronic Assessment & Plan: Likely chronic and related to CKD. He has not had any evidence of overt bleeding. Will see if can contact his primary care provider to see if he has had erythropoietin level checked in the past (or received erythropoietin therapy). Either way, he will need acute transfusion as he has acute respiratory illness with hypoxia as well as a history of heart disease. Will transfuse 2 units PRBC and try to keep Hgb/Hct >10/30. (4) DM2 (diabetes mellitus, type 2) Assessment & Plan: He is on chronic treatment with 70/30 insulin. We have also placed him on sliding scale level #2. (5) CAD (coronary artery disease) Assessment & Plan: He is on chronic treatment with aspirin and Plavix. (6) Essential hypertension Assessment & Plan: He is on chronic treatment with amlodipine, hydralazine, and labetalol. (7) Chronic kidney disease (CKD) stage G4/A1, severely decreased glomerular filtration rate (GFR) between 15-29 mL/min/1.73 square meter and albuminuria creatinine ratio less than 30 mg/g Assessment & Plan: He has one functioning kidney. He does not recall his baseline creatinine. Will try to contact his PCP. (8) Sleep apnea Assessment & Plan: He does wear CPAP at home. Exam Sepsis Risk: No Definite Risk OXANA TOURE MD Aug 27, 2018 12:27
[2018-08-27] MEDS ORDERED: FUROSEMIDE 20 MG/2 ML VIAL IVP ONE (15:15)
[2018-08-27] MEDS: cefTRIAXone 2 GM VIAL IVP SCH (23:19)
[2018-08-28 03:51] VITALS: BP 127/49
[2018-08-28] MEDS: ALBUTEROL/IPRATROPIUM 3 ML NEB NEB SCH ×2 (05:27→09:07)
[2018-08-28 06:21] LABS: PLATELET COUNT, AUTOMATED 311 K/uL (150-450)
[2018-08-28 08:20] VITALS: BP 163/77
[2018-08-28] MEDS: INSULIN HUM ISO(NPH) 100 UN/ML 3 ML VIAL SUBQ SCH (09:13)
[2018-08-28] MEDS: FLUTICASONE PROP 0.05% 16 GM SCH (09:15)
[2018-08-28] MEDS: ASPIRIN 81 MG ENTERIC COATED PO SCH (09:16)
[2018-08-28] MEDS: EZETIMIBE 10 MG TAB PO SCH (09:16)
[2018-08-28] MEDS: TAMSULOSIN HCL 0.4 MG CAP PO SCH (09:16)
[2018-08-28] MEDS: hydrALAZINE HCL 25 MG TAB PO SCH (09:16)
[2018-08-28] MEDS: LABETALOL HCL 100 MG TAB PO SCH (09:16)
[2018-08-28] MEDS: amLODIPine BESYL(*) 5 MG TAB PO SCH (09:17)
[2018-08-28] MEDS: predniSONE 20 MG TAB PO SCH (09:17)
[2018-08-28] MEDS: PANTOPRAZOLE SOD 40 MG TABEC PO SCH (09:18)
[2018-08-28] MEDS: ADCIRCA 20 MG PO SCH (09:18)
[2018-08-28] MEDS: ATORVASTATIN 40 MG TAB PO SCH (09:18)
[2018-08-28] MEDS: OMEGA-3 500 MG CAP PO SCH (09:18)
[2018-08-28] MEDS ORDERED: PRED-1 PO (09:23)
[2018-08-28] MEDS ORDERED: DOXY-179 PO (09:23)
[2018-08-28] MEDS ORDERED: CEF300 PO (09:23)
[2018-08-28] MEDS: CLOPIDOGREL BISULFATE 75MG TAB PO SCH (09:26)
--- NOTE | 2018-08-28 09:28 | Hospitalist Depart ---
Discharge Summary Reason for Hosp/Final Diag: (1) Bacterial pneumonia Status: Acute Hospital Course & Plan: His chest x-ray ddi suggest a developing infiltrate. He was placed on empiric treatment with ceftriaxone and doxycycline. His cultures have remained negative. He will discharge to complete course of oral antibiotics. (2) COPD exacerbation Hospital Course & Plan: He was wheezy in the ER, which has cleared. He has been started on nebulizers and steroids. He will complete a prednisone taper. (3) Anemia Status: Chronic Hospital Course & Plan: He did receive 2 units of red cells. An erythropoietin level is pending. (4) DM2 (diabetes mellitus, type 2) Hospital Course & Plan: He is on chronic treatment with 70/30 insulin. (5) CAD (coronary artery disease) Hospital Course & Plan: He is on chronic treatment with aspirin and Plavix. (6) Essential hypertension Hospital Course & Plan: He is on chronic treatment with amlodipine, hydralazine, and labetalol. (7) Chronic kidney disease (CKD) stage G4/A1, severely decreased glomerular filtration rate (GFR) between 15-29 mL/min/1.73 square meter and albuminuria creatinine ratio less than 30 mg/g Hospital Course & Plan: He has one functioning kidney. He does not recall his baseline creatinine. Will try to contact his PCP. (8) Sleep apnea Hospital Course & Plan: He does wear CPAP at home. Departure Latest Vital Signs Vital Signs 08/28/18 08/28/18 08:20 09:10 Temp 97.9 Pulse 62 Resp 18 B/P (MAP) 163/77 (105) Weight (Pounds): 262 Result Diagram: 08/28/1860308/28/18603 Condition: Improved Discharge: Home, Self Care Discharge Instructions Home Meds Active Scripts Prednisone 10 Mg Tab (PREDNISONE 10 MG TAB) 10 Mg Tablet, 10 MG PO DIRECTED, #30 TAB Take 4 tab daily x 3 days, then 3 tab daily x 3 days, then 2 tab daily x 3 days, then 1 tab daily x 3 days Prov:CONSUELO BROUSSARD DO 08/28/18 Doxycycline Hyclate (DOXYCYCLINE HYCLATE) 100 Mg Tablet, 100 MG PO BID, #8 TAB Prov:CONSUELO BROUSSARD DO 08/28/18 Cefdinir 300 Mg Cap (OMNICEF 300 MG CAP (OR EQUIV)) 300 Mg Cap, 300 MG PO BID, #8 CAP Prov:CONSUELO BROUSSARD DO 08/28/18 Reported Medications Aspirin (ASPIRIN EC) 81 Mg Tablet.dr, 81 MG PO QDAY, TAB 08/25/18 Hazel-3 Fatty Acids/Fish Oil (FISH OIL 1,000 MG CAPSULE) 1 Each Capsule, 1 EACH PO BID, CAPSULE 08/25/18 Fluticasone Prop 50 Mcg Ns (FLONASE 50 MCG NS) 16 Gm Hulen.susp, 2 SPRAYS NS BID, BOT 08/25/18 Insulin NPH Hum/Reg Insulin Hm (Relion Novolin 70-30 Flexpen) 100 Unit/Ml (70- 30) Insuln.pen, 85 UNITS SUBQ BIDAC 08/25/18 Ezetimibe (ZETIA) 10 Mg Tablet, 10 MG PO QDAY, TAB 08/25/18 Tamsulosin Hcl (TAMSULOSIN HCL) 0.4 Mg Cap.er.24h, 0.4 MG PO QDAY, CAP 08/25/18 Atorvastatin Calcium (LIPITOR) 40 Mg Tablet, 2 TAB PO QDAY, TAB 08/25/18 [Bd Insulin] No Conflict Check, SQ DIRECTED 08/25/18 Labetalol Hcl (LABETALOL HCL) 300 Mg Tablet, 300 MG PO BID 08/25/18 Tadalafil (Tadalafil) 20 Mg Tablet, 1 TAB PO QDAY 08/25/18 Hydralazine Hcl (HYDRALAZINE HCL) 100 Mg Tablet, 100 MG PO BID, TAB 08/25/18 Omeprazole (OMEPRAZOLE) 20 Mg Tablet.dr, 20 MG PO QDAY, TAB 08/25/18 Amlodipine Besylate (AMLODIPINE BESYLATE) 10 Mg Tablet, 1 TAB PO QDAY, TAB 08/25/18 Clopidogrel Bisulfate (CLOPIDOGREL) 75 Mg Tablet, 1 TAB PO QDAY, TAB 08/25/18 Diet: Diabetic Activity: As Tolerated Venous Thromboembolism Antithrombotics Is Pt On Any Antithrombotics?: No CONSUELO BROUSSARD DO Aug 28, 2018 09:28
[2018-08-28] MEDS: DOXYCYCLINE HYCL 100 MG VIAL 100 MG in NS(*) 0.9% 250 ML BAG 250 ML IV SCH (10:55)
[2018-08-28 11:15] VITALS: BP 143/100
== END 2018-08-28 14:18 | disposition home or self-care (01) | DRG 190 ==
LOC: ER 19:58 → MED 20:58
PROVIDERS: ADMIT Family Medicine; ATTEND Family Medicine
PROC: 5A09357 Assistance with Respiratory Ventilation, Less than 24 Consecutive Hours, Continuous Positive Airway Pressure (ICD-10-PCS; 2018-08-25)
PROC: 30233N1 Transfusion of Nonautologous Red Blood Cells into Peripheral Vein, Percutaneous Approach (ICD-10-PCS; principal; 2018-08-27)
DX: J44.0 Chronic obstructive pulmonary disease with (acute) lower respiratory infection (principal); J15.9 Unspecified bacterial pneumonia; N18.4 Chronic kidney disease, stage 4 (severe); I13.0 Hypertensive heart and chronic kidney disease with heart failure and stage 1 through stage 4 chronic kidney disease, or unspecified chronic kidney disease; J44.1 Chronic obstructive pulmonary disease with (acute) exacerbation; D64.9 Anemia, unspecified; I25.10 Atherosclerotic heart disease of native coronary artery without angina pectoris; E11.22 Type 2 diabetes mellitus with diabetic chronic kidney disease; I12.9 Hypertensive chronic kidney disease with stage 1 through stage 4 chronic kidney disease, or unspecified chronic kidney disease; G47.30 Sleep apnea, unspecified; E11.40 Type 2 diabetes mellitus with diabetic neuropathy, unspecified; I71.4 Abdominal aortic aneurysm, without rupture; E78.5 Hyperlipidemia, unspecified; K21.9 Gastro-esophageal reflux disease without esophagitis; Z95.1 Presence of aortocoronary bypass graft; Z88.8 Allergy status to other drugs, medicaments and biological substances; Z85.828 Personal history of other malignant neoplasm of skin; Z79.4 Long term (current) use of insulin
CPT/HCPCS: 36415; 36416; 71045; 71046; 78582; 82040; 82247; 82310; 82374; 82435; 82565; 82668; 82947; 82948; 83880; 84075; 84132; 84155; 84295; 84450; 84460; 84484; 84520; 85025; 85379; 85610; 85730; 86850; 86900; 86901; 86920; 87040; 87502; 93005; 94640; 94644; 94660; 94667; 94668; 96361; 96374; 99284; A9540; A9567; J0696; J1940; J2930; J3490; J7030; J7040; J7050; J7512; P9016; Q9967

== ENCOUNTER → 2018-08-25 | Outpatient (CLI) | payer MEDICARE ==
[~2018-08-25] MED LIST: AMLO-127 PO; ASPI81TA86 PO; ATOR40TA24 PO; BD INSULIN SQ; CEF300 PO; CLOP75TA PO; DOXY-179 PO; EZET10TA41 PO; FLUT16SP19 NS; HYDR100T5 PO; INSU100I43 SUBQ; OMEG-11 PO; OMEP-137 PO; PRED-1 PO; TADA20TA PO; TAMS0.4C70 PO; [UNRECOGNIZED DRUG - CODE] PO
[2018-08-26 10:48] VITALS: BMI 36.5
== END ==
LOC: AMB 18:48
PROVIDERS: ATTEND Nurse Practitioner
DX: R06.00 Dyspnea, unspecified (principal); R09.02 Hypoxemia; J44.9 Chronic obstructive pulmonary disease, unspecified
CPT/HCPCS: A0425; A0427